=== PATIENT | female | born 1950 | race Caucasian/White ===

== ENCOUNTER 2021-05-02 20:54 | Emergency (ER) | payer MEDICARE, SELFPAY ==
[2021-05-02] VITALS (7 sets, daily range): BP systolic 144–178; BP diastolic 70–85; PULSE 69–78; RESP 18–22; TEMP 36.4; O2SAT 97–100; BMI 20.9
[2021-05-02] MEDS: SODIUM CHLORIDE 0.9% 1,000 ML 1000 ML IV (21:00)
[2021-05-02 21:56] LABS: Add Manual Diff / Slide Review NO; Basophils Absolute Auto 0 /uL (0-100); Basophils Percent Auto 0.5 % (0-2); Eosinophils Absolute Auto 200 /uL (0-450); Eosinophils Percent Auto 3.1 % (2-4); Hematocrit 38.3 % (36-46); Hemoglobin 12.9 g/dL (12.0-16.0); Lymphocytes Absolute Auto 2100 /uL (1100-4500); Lymphocytes Percent Auto 40.4 % (25-40); Mean Corpuscular HGB Conc 33.6 % (30-36); Mean Corpuscular Hemoglobin 30.1 PG (26-34); Mean Corpuscular Volume 89.4 fL (80-100); Monocytes Absolute Auto 500 /uL (0-900); Monocytes Percent Auto 10.2 % (3-14); Neutrophils Absolute Auto 2300 /uL (1500-7000); Neutrophils Percent Auto 45.8 % (50-75); Platelet Count 248 X10^3/uL (150-400); Red Blood Cell Count 4.29 X10^6/uL (4.0-5.2); White Blood Cell Count 5.1 X10^3/uL (4.5-11.0)
[2021-05-02 21:58] LABS: Ethanol (ETOH) 24 mg/dL
[2021-05-02 22:00] LABS: Alanine Aminotransferase 23 IU/L (<35); Albumin 4.3 g/dL (3.5-5.0); Albumin Globulin Ratio 1.3 (1.0-2.8); Alkaline Phosphatase 51 U/L (38-126); BUN Creatinine Ratio 27.3 (6-22); Bilirubin Total 0.5 mg/dL (0.2-1.3); Blood Urea Nitrogen 12 mg/dL (7-17); Calcium 9.4 mg/dL (8.4-10.2); Carbon Dioxide 26 mmol/L (22-32); Chloride 99 mmol/L (98-107); Estimated Glomerular Filt Rate > 60.0 mL/min (>60); Globulin 3.2 g/dL (1.7-4.1); Glucose 116 mg/dL (80-110); Sodium 133 mmol/L (137-145); Total Protein 7.5 g/dL (6.3-8.2)
[2021-05-02 22:03] LABS: HEMOLYSIS 54 (0-50)
[2021-05-02 22:04] LABS: Aspartate Aminotransferase 40 IU/L (14-36)
[2021-05-02 22:05] LABS: Potassium 3.8 mmol/L (3.4-5.1)
[2021-05-02 22:11] LABS: Troponin I < 0.012 ng/mL (0.01-0.034)
[2021-05-02 22:22] LABS: Bacteria Urine Many (>30); Culture Indicated Urine Specimen Cultured; RBC Urine 0-1/HPF (0-5/HPF); WBC Urine 0-1/HPF (0-5/HPF)
--- NOTE | 2021-05-02 23:20 | ED.NEUROSD ---
HPI - Neuro Symptoms/Deficit General Chief Complaint: Neuro Symptoms/Deficit Stated Complaint: syncope/tia Time Seen by Provider: 05/02/21 20:54 Source: patient and EMS Mode of arrival: EMS Limitations: no limitations History of Present Illness HPI Narrative: 70-year-old woman with history of prior aneurysm, aneurysm rupture extensive ICU stay with receptive and expressive aphasia and left leg weakness. She had been at a family event today had a couple of drinks minimal food sitting in the sun and had an episode where she simply ?checked out? according to her . He noticed this and helped her to the ground. She did not fall and did not have any seizure activity. When she was lying in the ground she did have return to consciousness. Shortly there after she had an episode of urinary incontinence. Medics were called and she became somewhat agitated. Given her previous extensive ICU stays she gets agitated with the prospect of any additional medical care intervention. She was eventually able to be persuaded to come to the emergency room for further evaluation. She does not have any new neurologic symptoms, no chest pain, no fevers, no dyspnea, orthopnea, abdominal pain, headache, diarrhea. On Anticoagulants: Yes Related Data Previous Rx's Medication Instructions Recorded sulfamethoxazole 800 1 tab PO BID #10 tab 05/02/21 mg-trimethoprim 160 mg tablet (Bactrim DS) Allergies Allergy/AdvReac Type Severity Reaction Status Date / Time No Known Drug Allergies Allergy Verified 05/02/21 21:19 Review of Systems Review of Systems Narrative: Remainder of complete review of systems is otherwise unremarkable except for that included in the HPI. Hematologic/Lymphatic On Anticoagulants: Yes Patient History Social History Smoking Status: Never smoker Smoking Status: Never smoker alcohol intake frequency: 0-2 drinks per day Substance Use Type: marijuana Exam Narrative Exam Narrative: General: Healthy appearing, in no acute distress. Able to participate with history. Well-nourished well-developed HEENT: Moist mucous membranes, normal sclera with reactive pupils, chronic mild left facial droop. Neck: No JVD, supple Respiratory: Lungs are clear to auscultation, no wheezing no rales no rhonchi. Full and symmetrical air movement Cardiac: Regular rate and rhythm no murmurs no bruits Abdomen: Soft, nontender, good bowel tones, no flank pain Skin: Warm and dry, no rashes Neurologic: Mild expressive aphasia with no obvious receptive aphasia. She is able to communicate effectively. Some slight left leg weakness that is is much prior stroke as it is left hip arthritis Extremities: No trauma, well perfused Psych: Cooperative, appropriate insight and affect Initial Vital Signs Initial Vital Signs: Vital Signs Pulse Rate 77 05/02/21 21:05 Respiratory Rate 21 05/02/21 21:05 Pulse Oximetry 98 05/02/21 21:05 Course Orders Ordered: ED Orders 05/02/21 21:56 Urine Culture Stat Urine Microscopic Stat Discontinued Medications Sodium Chloride (Normal Saline 0.9%) 1,000 mls @ 1,000 mls/hr IV BOLUS ONE Stop: 05/02/21 22:44 Last Infusion: 05/02/21 22:48 Dose: 0 mls/hr Documented by: Admin: 05/02/21 21:00 Dose: 1,000 mls/hr Documented by: OSWALD Trimethoprim/Sulfamethoxazole (Trimeth/Sulfa 160/800 (Ds) Tablet) 1 tab PO NOW ONE Stop: 05/02/21 23:25 Last Admin: 05/02/21 23:35 Dose: 1 tab Documented by: OSWALD Vital Signs Vital signs: Vital Signs - 8 hr 05/02/21 22:09 05/02/21 22:10 05/02/21 22:30 Pulse Rate 71 69 69 Respiratory Rate 18 Blood Pressure 178/80 H 155/76 H Pulse Oximetry 97 100 100 05/02/21 23:37 Pulse Rate 71 Respiratory Rate Blood Pressure 161/85 H Pulse Oximetry 100 MDM - Neuro Symptoms/Deficit Lab Data Result diagrams: 05/02/21 20:35 05/02/21 20:35 Labs: Lab Results 05/02/21 05/02/21 05/02/21 Range/Units 20:35 20:35 21:56 WBC 5.1 (4.5-11.0) X10^3/uL RBC 4.29 (4.0-5.2) X10^6/uL Hgb 12.9 (12.0-16.0) g/dL Hct 38.3 (36-46) % MCV 89.4 (80-100) fL MCH 30.1 (26-34) PG MCHC 33.6 (30-36) % RDW 13.0 (11.6-14.8) % Plt Count 248 (150-400) X10^3/uL Neut % (Auto) 45.8 L (50-75) % Lymph % (Auto) 40.4 H (25-40) % [place] % (Auto) 10.2 (3-14) % Eos % (Auto) 3.1 (2-4) % Baso % (Auto) 0.5 (0-2) % Neut # (Auto) 2300 (6767-0800) /uL Lymph # (Auto) 2100 (7902-9398) /uL [place] # (Auto) 500 (0-900) /uL Eos # (Auto) 200 (0-450) /uL Baso # (Auto) 0 (0-100) /uL Sodium 133 L (137-145) mmol/L Potassium 3.8 (3.4-5.1) mmol/L Chloride 99 (98-107) mmol/L Carbon Dioxide 26 (22-32) mmol/L BUN 12 (7-17) mg/dL Creatinine 0.44 L (0.52-1.04) mg/dL Estimated GFR > 60.0 (>60) mL/min BUN/Creatinine Ratio 27.3 H (6-22) Glucose 116 H (80-110) mg/dL Calcium 9.4 (8.4-10.2) mg/dL Total Bilirubin 0.5 (0.2-1.3) mg/dL AST 40 H (14-36) IU/L ALT 23 (<35) IU/L Alkaline Phosphatase 51 (38-126) U/L Troponin I < 0.012 (0.01-0.034) ng/mL Total Protein 7.5 (6.3-8.2) g/dL Albumin 4.3 (3.5-5.0) g/dL Globulin 3.2 (1.7-4.1) g/dL Albumin/Globulin Ratio 1.3 (1.0-2.8) Urine RBC 0-1/hpf (0-5/HPF) Urine WBC 0-1/hpf (0-5/HPF) Urine Bacteria Many (>30) H (None) Ur Culture Indicated? Specimen cultured Ethyl Alcohol 24 H ( - 10) mg/dL Point of Care Testing Glucose POC 112 Urine Dip Bedside Urine Glucose Negative Bedside Urine Bilirubin - Negative Bedside Urine Ketone - Negative Urine Specific [place] 1.015 Bedside Urine Occult Blood +/- Bedside Urine pH 6.5 Bedside Urine Protein - Negative Bedside Urine Urobilinogen - Negative Bedside Urine Nitrite + Positive Bedside Urine Leukocytes + 70 Esterase MDM Narrative Medical decision making narrative: 70-year-old woman with history of receptive and expressive aphasia with prior CVAs had been drinking alcohol today, sitting in the sunshine have little to eat and had a episode of feeling lightheaded and her helped her to the ground. After receiving a L of fluid in the emergency department she is feeling significantly better. There is no evidence of acute coronary syndrome new stroke or sepsis. It does look like she has a mild bladder infection will be treated with Septra for such. Reassurance is given and she is safe for home discharge Discharge Plan Departure Patient Disposition: Home Clinical Impression: Dehydration Urinary tract infection Qualifiers: Urinary tract infection type: site unspecified Hematuria presence: without hematuria Qualified Code(s): N39.0 - Urinary tract infection, site not specified Instructions: DI for Urinary Tract Infection (UTI) Activity Restrictions/Additional Instructions: Thank you for coming in today It does look like you are developing a bladder infection and I suspect the small amount of alcohol, lack of food and sunshine all contributed to the lightheaded episode you had this afternoon. I am not finding any evidence of a heart attack, a new stroke or overwhelming infection. I would like you to complete 5 days of Bactrim, and antibiotic for your bladder infection. You have been given the 1st dose in the emergency depart I hope that you feel better Prescriptions: New sulfamethoxazole-trimethoprim [Bactrim DS] 800-160 mg tablet 1 tab PO BID Qty: 10 RF: 0
[2021-05-02] MEDS: TRIMETH/SULFA 160/800 (DS) TABLET 1 TAB PO (23:35)
== END 2021-05-02 23:46 | disposition home or self-care (01) ==
PROVIDERS: Emergency Provider Emergency Medicine
DX: E86.0 Dehydration (principal); N39.0 Urinary tract infection, site not specified
CPT/HCPCS: 36415; 80053; 80320; 81003; 81015; 82962; 84484; 85025; 87077; 87086; 87186; 96360; 96361; 99284